=== PATIENT | male | born 1950 | race Caucasian/White ===

== ENCOUNTER 2017-09-26 14:02 | Inpatient (IN) | payer MEDICARE, BC, OTHER ==
[~2017-09-26] VITALS: Ht 175.3 cm; Wt 94.1 kg
[2017-09-26] MEDS ORDERED: VALS320T2 PO (14:19)
[2017-09-26] MEDS ORDERED: ASPI-630 PO (14:19)
[2017-09-26] MEDS ORDERED: LIPITOR80 MG PO (14:19)
[2017-09-26] MEDS ORDERED: CARV12.52 PO (14:19)
[2017-09-26] MEDS ORDERED: INSU100I13 SQ (14:19)
[2017-09-26] MEDS ORDERED: ISOS30TA4 PO (14:19)
[2017-09-26] MEDS ORDERED: INSU100V31 SQ (14:19)
[2017-09-26] MEDS ORDERED: LIRA0.6P2 SQ (14:19)
--- NOTE | 2017-09-26 14:19 | EKG ---
[facility] [address] [place] [address] Test Date: 2017-09-26 Test Time: 14:08:00 Pat Name: KATELYN PARNELL Department: Room: Gender: M Licensed Therapist: : [id number] Requested By: CHARY SALAS Order Number: [id number] Reading MD: John Santillan Measurements Intervals [place] Rate: 67 P: -36 ME: 184 QRS: -19 QRSD: 88 T: 176 QT: 416 QTc: 443 Interpretive Statements SINUS RHYTHM LEFTWARD AXIS CONSIDER LEFT VENTRICULAR HYPERTROPHY QRS(T) CONTOUR ABNORMALITY CONSISTENT WITH ANTEROSEPTAL INFARCT PROBABLY OLD T ABNORMALITY IN ANTEROLATERAL LEADS ABNORMAL ECG Electronically Signed On 10-09-2017 13:53:59 PROPERTY MANAGEMENT ACCOUNTANT by John Santillan
--- NOTE | 2017-09-26 14:35 | PHYS DOC ---
Past Medical History Past Medical History: Diabetes-Type II, GERD, High Cholesterol, Hypertension, SD Past Surgical History: Pacemaker, Other Additional Past Surgical Histo: shoulder surgery x3 Alcohol Use: None Drug Use: None Adult General Chief Complaint Chief Complaint: CHEST PAIN HPI HPI 66 YO M presenting to the ED with chest pain. He describes a central midsternal chest pain that was moderate to severe associated with nausea lightheadedness sweatiness and pallor. He also felt mildly short of breath. This happened approximately 30 minutes prior to arrival. Upon EMS arrival the patient was given aspirin and nitroglycerin which improved his symptoms significantly. He has cardiology at [facility]. He reports a history of 3 stents in the past. He denies being on clopidogrel. He denies unilateral leg swelling hemoptysis or history of blood clot. Review of systems is negative for abdominal pain. Positive for nausea and sweatiness. Negative for fevers chills. All other review of systems is negative unless otherwise noted in history of present illness. ED course: 66-year-old male presenting to the emergency department with diaphoresis and pallor associated with chest pain and pressure. Patient responded well to aspirin and nitroglycerin and was essentially chest pain-free upon arrival. Initially the patient was afebrile with a normal heart rate. EKG obtained and reviewed by myself shows sinus rhythm with a regular rate. ST segments are congruent. does not meet stemi criteria. Chest x-ray obtained which was unremarkable. Blood work obtained which shows mildly elevated troponin. Bolus heparin given. I discussed with the ASHLEIGH Curry from our cardiology team. We will admit the patient to our cardiovascular care unit for further evaluation workup and care. Review of Systems Review of Systems SEE ABOVE. Current Medications Current Medications Current Medications Medications (Trade) Dose Ordered Sig/[facility] Start Time Stop Time Status Last Admin Dose Admin Heparin Sodium (Porcine) (Heparin Sodium) 4,000 unit 1X ONCE 09/26/17 15:30 09/26/17 15:31 DC Heparin Sodium/ Dextrose 500 ml @ 0 mls/hr CONT PRN 09/26/17 15:30 Morphine Sulfate 2 mg PRN Q2HR PRN 09/26/17 15:30 09/27/17 15:29 Nitroglycerin (Nitrostat) 0.4 mg PRN Q5MIN PRN 09/26/17 15:30 09/27/17 15:29 Ondansetron HCl (Zofran) 4 mg PRN Q8HRS PRN 09/26/17 15:30 09/27/17 15:29 Sodium Chloride 1,000 ml @ 100 mls/hr Q10H 09/26/17 15:18 09/27/17 03:17 Allergies Allergies Allergies Coded Allergies Type Severity Reaction Last Updated Verified No Known Drug Allergies 09/26/17 No Physical Exam Physical Exam SEE ABOVE Constitutional: Well developed, well nourished, no acute distress, non-toxic appearance. [] HENT: Normocephalic, atraumatic, bilateral external ears normal, oropharynx moist, no oral exudates, nose normal. Eyes: PERRLA, EOMI, conjunctiva normal, no discharge. [] Neck: Normal range of motion, no tenderness, supple, no stridor. [] Cardiovascular:Heart rate regular rhythm, no murmur [] Lungs & Thorax: Bilateral breath sounds clear to auscultation [] Abdomen: Bowel sounds normal, soft, no tenderness, no masses, no pulsatile masses. [] Skin: Warm, dry, no erythema, no rash. no longer diaphoretic. Back: No tenderness, no CVA tenderness. [] Extremities: No tenderness, no cyanosis, no clubbing, ROM intact, no edema. [] Neurologic: Alert and oriented X 3, normal motor function, normal sensory function, no focal deficits noted. Psychologic: Affect normal, judgement normal, mood normal. [] Current Patient Data Vital Signs Vital Signs Date Time Temp Pulse Resp B/P (MAP) Pulse Ox O2 Delivery O2 Flow Rate FiO2 09/26/17 14:02 98.5 65 20 134/70 (91) 99 Room Air 98.5 Lab Values Laboratory Tests Test 09/26/17 14:40 White Blood Count 5.6 x10^3/uL (4.0-11.0) Red Blood Count 4.29 x10^6/uL (4.30-5.70) L Hemoglobin 12.8 g/dL (13.0-17.5) L Hematocrit 38.1 % (39.0-53.0) L Mean Corpuscular Volume 89 fL (79-100) Mean Corpuscular Hemoglobin 30 pg (25-35) Mean Corpuscular Hemoglobin Concent 34 g/dL (31-37) Red Cell Distribution Width 13.4 % (11.5-14.5) Platelet Count 157 x10^3/uL (140-400) Neutrophils (%) (Auto) 69 % (31-73) Lymphocytes (%) (Auto) 18 % (24-48) L Monocytes (%) (Auto) 6 % (0-9) Eosinophils (%) (Auto) 6 % (0-3) H Basophils (%) (Auto) 1 % (0-3) Neutrophils # (Auto) 3.8 x10^3uL (1.8-7.7) Lymphocytes # (Auto) 1.0 x10^3/uL (1.0-4.8) Monocytes # (Auto) 0.3 x10^3/uL (0.0-1.1) Eosinophils # (Auto) 0.3 x10^3/uL (0.0-0.7) Basophils # (Auto) 0.0 x10^3/uL (0.0-0.2) Prothrombin Time 13.7 SEC (11.7-14.0) Prothrombin Time INR 1.1 (0.8-1.1) Sodium Level 142 mmol/L (136-145) Potassium Level 3.7 mmol/L (3.5-5.1) Chloride Level 107 mmol/L (98-107) Carbon Dioxide Level 27 mmol/L (21-32) Anion Gap 8 (6-14) Blood Urea Nitrogen 16 mg/dL (8-26) Creatinine 1.6 mg/dL (0.7-1.3) H Estimated GFR (Cockcroft-Gault) 43.3 BUN/Creatinine Ratio 10 (6-20) Glucose Level 202 mg/dL (70-99) H Calcium Level 8.5 mg/dL (8.5-10.1) Magnesium Level 2.0 mg/dL (1.8-2.4) Total Bilirubin 0.7 mg/dL (0.2-1.0) Aspartate Amino Transferase (AST) 39 U/L (15-37) H Alanine Aminotransferase (ALT) 37 U/L (16-63) Alkaline Phosphatase 69 U/L (46-116) Troponin I Quantitative 0.062 ng/mL (0.000-0.055) Total Protein 6.8 g/dL (6.4-8.2) Albumin 2.8 g/dL (3.4-5.0) L Albumin/Globulin Ratio 0.7 (1.0-1.7) L Laboratory Tests 09/26/17 14:40 Laboratory Tests 09/26/17 14:40 EKG EKG [] Radiology/Procedures Radiology/Procedures [] Course & Med Decision Making Course & Med Decision Making Pertinent Labs and Imaging studies reviewed. (See chart for details) [] Dragon Disclaimer Dragon Disclaimer This electronic medical record was generated, in whole or in part, using a voice recognition dictation system. Departure Departure Impression: Primary Impression: NSTEMI (non-ST elevated myocardial infarction) Additional Impression: Angina at rest Disposition: ADMITTED INPATIENT Admitting Physician: Estefani Cleary Condition: STABLE Problem Qualifiers LILA SOLIS MD Sep 26, 2017 14:35
[2017-09-26 14:49] LABS: BASO % 1 % (0-3); EOS % 6 % (0-3); HEMATOCRIT 38.1 % (39.0-53.0); HEMOGLOBIN 12.8 g/dL (13.0-17.5); LYMPH % 18 % (24-48); MEAN CORPUSCULAR HEMOGLOBIN 30 pg (25-35); MEAN CORPUSCULAR HGB CONC 34 g/dL (31-37); MEAN CORPUSCULAR VOLUME 89 fL (79-100); MONO % 6 % (0-9); NEUT % 69 % (31-73); PLATELET COUNT 157 x10^3/uL (140-400); RED BLOOD COUNT 4.29 x10^6/uL (4.30-5.70); RED CELL DISTRIBUTION WIDTH 13.4 % (11.5-14.5); WHITE BLOOD COUNT 5.6 x10^3/uL (4.0-11.0)
[2017-09-26 14:59] LABS: CALCIUM 8.5 mg/dL (8.5-10.1); CREATININE 1.6 mg/dL (0.7-1.3); GFR 43.3; POTASSIUM 3.7 mmol/L (3.5-5.1)
--- NOTE | 2017-09-26 15:00 | RAD ---
EXAM: Chest one view. HISTORY: Chest pain. Hypertension, diabetes. COMPARISON: None. FINDINGS: A frontal view of the chest is obtained. A left-sided pacemaker has its leads in the right atrium and right ventricle. The inspiration is small. There are no confluent infiltrates. There is no pneumothorax or pleural effusion. The heart is not enlarged. IMPRESSION: 1. No confluent infiltrates.
[2017-09-26 15:03] LABS: INR 1.1 (0.8-1.1); PROTHROMBIN TIME PATIENT 13.7 SEC (11.7-14.0)
[2017-09-26 15:06] LABS: ALBUMIN 2.8 g/dL (3.4-5.0); ALBUMIN/GLOBULIN RATIO 0.7 (1.0-1.7); TOTAL BILIRUBIN 0.7 mg/dL (0.2-1.0); TOTAL PROTEIN 6.8 g/dL (6.4-8.2)
[2017-09-26] MEDS: IV NORMAL SALINE 1000ML BAG 1,000 ML IV SCH (15:18)
[2017-09-26] MEDS ORDERED: NITROGLYCERIN SUBLINGUAL 0.4 MG BOTTLE OF 25. SL PRN (15:30)
[2017-09-26] MEDS ORDERED: MORPHINE SULFATE 2 MG/ML DISP.SYRIN. IV PRN (15:30)
[2017-09-26] MEDS ORDERED: HEPARIN for IV BOLUS 10,000 UNIT/10 ML VIAL. IV ONE (15:30)
[2017-09-26] MEDS ORDERED: HEPARIN for IV BOLUS 10,000 UNIT/10 ML VIAL. IV PRN (15:30)
[2017-09-26] MEDS ORDERED: ONDANSETRON PF 4 MG/2 ML VIAL. IV PRN ×2 (15:30→16:15)
[2017-09-26] MEDS ORDERED: HEPARIN 25,000UTS/500ML PREMIX 500 ML IV PRN (15:30)
--- NOTE | 2017-09-26 15:33 | PDOC2 ---
CARDIAC CONSULT DATE OF CONSULT Date of Consult DATE: 09/26/17 TIME: 15:30 REASON FOR CONSULT Reason for Consult: Chest Pain REFERRING PHYSICIAN Referring Physician: Dr. Samano SOURCE Source: Chart review, Patient HISTORY OF PRESENT ILLNESS HISTORY OF PRESENT ILLNESS This is a 66 yo male, with a history of CAD s/p stent placement, SSS s/p PPM placement, DM, HTN, HLP, who presented with complaints of chest pain. Patient reports he was eating lunch when he had a sudden onset of central chest pain that he described initially as burning in nature. Within minutes, was associated with SOA, diaphoresis, nausea with vomiting, and dizziness. recalls pale color to his face. Denies any palpitations. No recent fatigue or GARDINER. EMS was called. No exacerbating factors. Improved with nitro en route. Took ASA prior to arrival. Pain presently 1/10 pressure in his central chest. Follows with Dr. Gomez of Cardiology. Records reviewed: - Cath with BMS to RCA in March of 2008 - ST elevation DE in February of 2013 that was treated with thrombectomy and BMS to his Dx branch and angioplasty to the LAD - SSS s/p PPM placement 04/2016. Cardiac cath at that time revealed : - Elevated LV filling pressures - Patent stnet in the proximal LAD and in the distal RCA - Moderate in-stent restenosis within the LAD artery with no evidence of flow limitation. Normal IFR of 0.92 - Echo 04/21 Left ventricular systolic function is at the lower limits of normal Mild LVH Abnormal LV diastolic filling Trace MR The apical anterior wall segment is hypokinetic - Lexiscan Nuclear Stress Test 07/2017 Relatively large, fixed, anteroapical defect. No evidence of reversibility and no significant inducible ischemia. Mild LV systolic dysfunction with hypokinesis of the apical wall. EF 49% No stress induced chest pain, LV dilatation, or EKG changes. No significant change compared to study 06/2014. PAST MEDICAL HISTORY Cardiovascular: CAD (s/p PCI/stent placement ), CHF, HTN, DE, Hyperlipidemia Pulmonary: Other (ROSA not compliant with CPAP) GI: GERD Heme/Onc: No pertinent hx Hepatobiliary: No pertinent hx Psych: No pertinent hx Musculoskeletal: Osteoarthritis Rheumatologic: No pertinent hx Infectious disease: No pertinent hx ENT: No pertinent hx Renal/: Chronic renal insuff Endocrine: Diabetes PAST SURGICAL HISTORY Past Surgical History: Pacemaker, Other (shoulder surgery) FAMILY HISTORY Family History: Alzheimer's Disease, Stroke SOCIAL HISTORY Smoke: No ALCOHOL: none Drugs: None Lives: with Family ALLERGIES ALLERGIES: Coded Allergies: No Known Drug Allergies (Unverified , 09/26/17) ROS Review of System 14 point ROS conducted with pertinent positives noted with HPI. PHYSICAL EXAM General: Alert, Oriented X3, Cooperative, No acute distress HEENT: Atraumatic Lungs: Clear to auscultation, Normal air movement Heart: Regular rate, Normal S1, Normal S2, No murmurs Abdomen: Soft, No tenderness, Other Extremities: No edema, Normal pulses Skin: No breakdown, No significant lesion Neuro: Normal speech, Sensation intact Psych/Mental Status: Mental status NL, Mood NL MUSCULOSKELETAL: Osteoarthritic changes both hands VITALS VITALS Vital Signs Date Time Temp Pulse Resp B/P (MAP) Pulse Ox O2 Delivery O2 Flow Rate FiO2 09/26/17 14:02 98.5 65 20 134/70 (91) 99 Room Air 98.5 LABS Lab: Laboratory Tests Test 09/26/17 14:40 White Blood Count 5.6 x10^3/uL (4.0-11.0) Red Blood Count 4.29 x10^6/uL (4.30-5.70) Hemoglobin 12.8 g/dL (13.0-17.5) Hematocrit 38.1 % (39.0-53.0) Mean Corpuscular Volume 89 fL (79-100) Mean Corpuscular Hemoglobin 30 pg (25-35) Mean Corpuscular Hemoglobin Concent 34 g/dL (31-37) Red Cell Distribution Width 13.4 % (11.5-14.5) Platelet Count 157 x10^3/uL (140-400) Neutrophils (%) (Auto) 69 % (31-73) Lymphocytes (%) (Auto) 18 % (24-48) Monocytes (%) (Auto) 6 % (0-9) Eosinophils (%) (Auto) 6 % (0-3) Basophils (%) (Auto) 1 % (0-3) Neutrophils # (Auto) 3.8 x10^3uL (1.8-7.7) Lymphocytes # (Auto) 1.0 x10^3/uL (1.0-4.8) Monocytes # (Auto) 0.3 x10^3/uL (0.0-1.1) Eosinophils # (Auto) 0.3 x10^3/uL (0.0-0.7) Basophils # (Auto) 0.0 x10^3/uL (0.0-0.2) Prothrombin Time 13.7 SEC (11.7-14.0) Prothromb Time International Ratio 1.1 (0.8-1.1) Sodium Level 142 mmol/L (136-145) Potassium Level 3.7 mmol/L (3.5-5.1) Chloride Level 107 mmol/L (98-107) Carbon Dioxide Level 27 mmol/L (21-32) Anion Gap 8 (6-14) Blood Urea Nitrogen 16 mg/dL (8-26) Creatinine 1.6 mg/dL (0.7-1.3) Estimated GFR (Cockcroft-Gault) 43.3 BUN/Creatinine Ratio 10 (6-20) Glucose Level 202 mg/dL (70-99) Calcium Level 8.5 mg/dL (8.5-10.1) Magnesium Level 2.0 mg/dL (1.8-2.4) Total Bilirubin 0.7 mg/dL (0.2-1.0) Aspartate Amino Transf (AST/SGOT) 39 U/L (15-37) Alanine Aminotransferase (ALT/SGPT) 37 U/L (16-63) Alkaline Phosphatase 69 U/L (46-116) Troponin I Quantitative 0.062 ng/mL (0.000-0.055) Total Protein 6.8 g/dL (6.4-8.2) Albumin 2.8 g/dL (3.4-5.0) Albumin/Globulin Ratio 0.7 (1.0-1.7) ECHOCARDIOGRAM ECHOCARDIOGRAM - Echo 04/2016 Left ventricular systolic function is at the lower limits of normal Mild LVH Abnormal LV diastolic filling Trace MR The apical anterior wall segment is hypokinetic STRESS TEST STRESS TEST - Lexiscan Nuclear Stress Test 07/2017 Relatively large, fixed, anteroapical defect. No evidence of reversibility and no significant inducible ischemia. Mild LV systolic dysfunction with hypokinesis of the apical wall. EF 49% No stress induced chest pain, LV dilatation, or EKG changes. No significant change compared to study 06/2014. HEART CATH HEART CATH Cardiac cath 04/2016 - Elevated LV filling pressures - Patent stnet in the proximal LAD and in the distal RCA - Moderate in-stent restenosis within the LAD artery with no evidence of flow limitation. Normal IFR of 0.92 ASSESSMENT/PLAN ASSESSMENT/PLAN 1. Chest pain; with typical and atypical features 2. Mild troponin elevation 3. CAD s/p PCI/stent placement as noted above in HPI 4. Hypertension 5. Hyperlipidemia 6. Chronic combined systolic/diastolic HF; compensated 7. CKD 3 8. Diabetes; uncontrolled. Recent HgA1C 10 9. SSS s/p PPM Recommendations Trend troponin Check lipids Obtain echo to assess LV function Resume secondary prevention measures Continue heparin gtt NPO p MN. Given history/significant risk factors and presentations, recommend cardiac cath with possible angioplasty. R/b/a discussed with patient and is agreeable. D/w primary bench press operator. Problems: KRISTI MUÑOZ APRN Sep 26, 2017 15:33
[2017-09-26] MEDS ORDERED: ACETAMINOPHEN 500 MG TABLET PO PRN (16:15)
--- NOTE | 2017-09-26 16:18 | PDOC1 ---
History and Physical Date of Admission Date of Admission DATE: 09/26/17 TIME: 16:12 Identification/Chief Complaint Chief Complaint cp Problems: Source Source: Caregiver, Chart review, Patient History of Present Illness History of Present Illness Very pleasant 66 y.o lola, usually follows at [facility], 3-4 indwelling stents, last one was yrs back, claims complaince to ASA and other meds, non smoker, non drinker but DM with hgba1c 10 in Jun 2017 just started seeing endoc in [facility], midsternal CP today at rest associated with lightheadedness, pallor, diaphoresis, emesis, LAsted an hr, got better with NTG SL and zofran IV. EKG no stemi, trop 0.06 first set, planned for LHC possibly tmr or today if schedule allows? REst of labs and VS ok, feeling much better now, at bedside, On lantus 45 qhs and novolog 10, 10, 12 no mention of neuropathy, also recently started on victoza Creat 1,6, as far as he can remember that is his baseline, around. Past Medical History Cardiovascular: HTN, [place], Hyperlipidemia GI: GERD Endocrine: Diabetes Past Surgical History Past Surgical History: Pacemaker, Other (shoulder surgery) Family History Family History: Hypertension Social History Smoke: No ALCOHOL: none Drugs: None Current Problem List Problem List Problems Medical Problems: (1) Angina at rest Status: Acute (2) NSTEMI (non-ST elevated myocardial infarction) Status: Acute Problems: Current Medications Current Medications Current Medications Heparin Sodium/ Dextrose 500 ml @ 0 mls/hr CONT PRN IV SEE I/O RECORD Last administered on 09/26/17 15:52; Start 09/26/17 at 15:30 Heparin Sodium (Porcine) (Heparin Sodium) 2,300 unit PRN Q6HRS PRN IV FOR UFH LEVEL LESS THAN 0.2; Start 09/26/17 at 15:30 Heparin Sodium (Porcine) (Heparin Sodium) 4,000 unit 1X ONCE IV Last administered on 09/26/17 15:50; Start 09/26/17 at 15:30; Stop 09/26/17 at 15 :31; Status DC Ondansetron HCl (Zofran) 4 mg PRN Q8HRS PRN IV NAUSEA/VOMITING; Start at 15:30; Stop 09/27/17 at 15:29 Morphine Sulfate 2 mg PRN Q2HR PRN IV PAIN; Start 09/26/17 at 15:30; Stop at 15:29 Sodium Chloride 1,000 ml @ 100 mls/hr Q10H IV ; Start 09/26/17 at 15:18; Stop 09/27/17 at 03:17 Nitroglycerin (Nitrostat) 0.4 mg PRN Q5MIN PRN SL CHEST PAIN; Start 09/26/17 at 15:30; Stop 09/27/17 at 15:29 Active Scripts Active Reported Victoza 3-Paulino (Liraglutide) 0.6 Mg/0.1 Ml Pen.injctr 1.8 Mg SQ DAILY Lantus Solostar (Insulin Glargine,Hum.rec.anlog) 100 Unit/1 Ml Insuln.pen 45 Unit SQ QHS Novolog (Insulin Aspart) 100 Unit/1 Ml Vial 10 Unit SQ TIDAC Aspirin 81 Mg Tab.chew 1 Tab PO DAILY Carvedilol 12.5 Mg Tablet 1 Tab PO BID Diovan (Valsartan) 320 Mg Tablet 320 Mg PO DAILY Isosorbide Mononitrate Er (Isosorbide Mononitrate) 30 Mg Tab.er.24h 1 Tab PO DAILY Lipitor (Atorvastatin Calcium) 80 Mg Tablet 1 Tab PO DAILY Allergies Allergies: Coded Allergies: No Known Drug Allergies (Unverified , 09/26/17) ROS General: No: Chills, Night Sweats, Fatigue, Malaise, Appetite, Other PSYCHOLOGICAL ROS: No: Anxiety, Behavioral Disorder, Concentration difficultie , Decreased libido, Depression, Disorientation, Hallucinations, Hostility, Irritablity, Memory difficulties, Mood Swings, Obsessive thoughts, Physical abuse, Sexual abuse, Sleep disturbances, Suicidal ideation, Other Eyes: No Blurry vision, No Decreased vision, No Double vision, No Dry eyes, No Excessive tearing, No Eye Pain, No Itchy Eyes, No Loss of vision, No Photophobia , No Scotomata, No Uses contacts, No Uses glasses, No Other HEENT: No: Heacaches, Visual Changes, Hearing change, Nasal congestion, Nasal discharge, Oral lesions, Sinus pain, Sore Throat, Epistaxis, Sneezing, Snoring, Tinnitus, Vertigo, Vocal changes, Other ALLERGY AND IMMUNOLOGY: No: Hives, Insect Bite Sensitivity, Itchy/Watery Eyes, Nasal Congestion, Post Nasal Drip, Seasonal Allergies, Other Hematological and Lymphatic: No: Bleeding Problems, Blood Clots, Blood Transfusions, Brusing, Night Sweats, Pallor, Swollen Lymph Nodes, Other ENDOCRINE: No: Breast Changes, Galactorrhea, Hair Pattern Changes, Hot Flashes , Malaise/lethargy, Mood Swings, Palpitations, Polydipsia/polyuria, Skin Changes , Temperature Intolerance, Unexpected Weight Changes, Other Breast: No New/Changing Breast Lumps, No Nipple changes, No Nipple discharge, No Other Respiratory: YES: Shortness of breath Cardiovascular: yes Chest Pain Gastrointestinal: Yes Nausea, Yes Vomiting, No Abdominal Pain, No Diarrhea, No Constipation, No Melena, No Hematochezia, No Other Genitourinary: No Dysuria, No Frequency, No Incontinence, No Hematuria, No Retention, No Discharge, No Urgency, No Pain, No Flank Pain, No Other, No , No , No , No , No , No , No Musculoskeletal: No Gait Disturbance, No Joint Pain, No Joint Stiffness, No Joint Swelling, No Muscle Pain, No Muscular Weakness, No Pain In:, No Swelling In:, No Other Neurological: No Behavorial Changes, No Bowel/Bladder ControlChng, No Confusion , No Dizziness, No Gait Disturbance, No Headaches, No Impaired Coord/balance, No Memory Loss, No Numbness/Tingling, No Seizures, No Speech Problems, No Tremors, No Visual Changes, No Weakness, No Other Skin: No Dry Skin, No Eczema, No Hair Changes, No Lumps, No Mole Changes, No Mottling, No Nail Changes, No Pruritus, No Rash, No Skin Lesion Changes, No Other, No Acne Physical Exam General: Alert, Oriented X3, Cooperative, No acute distress HEENT: Atraumatic, PERRLA, EOMI Lungs: Clear to auscultation, Normal air movement Heart: S1S2, RRR, no thrills, no rubs, no gallops Cardiovascular: S1, S2 Breasts: Normal, Rt breast nml w/o mass, Lt breast nml w/o mass, Nipples normal Abdomen: Normal bowel sounds, Soft, No tenderness, No hepatosplenomegaly, No masses Male Genitals Exam: normal genitalia, normal prostate PELVIC: Nml ext genitalia Extremities: No clubbing, No cyanosis, No edema, Normal pulses, No tenderness/ swelling Skin: No rashes, No breakdown, No significant lesion Neuro: Normal gait, Normal speech, Strength at 5/5 X4 ext, Normal tone, Sensation intact, Cranial nerves 3-12 NL, Reflexes 2+ Psych/Mental Status: Mental status NL, Mood NL Vitals Vitals Vital Signs Date Time Temp Pulse Resp B/P (MAP) Pulse Ox O2 Delivery O2 Flow Rate FiO2 09/26/17 15:56 85 18 141/86 (104) 94 Room Air 09/26/17 14:02 98.5 98.5 Labs Labs Laboratory Tests Test 09/26/17 14:40 White Blood Count 5.6 x10^3/uL (4.0-11.0) Red Blood Count 4.29 x10^6/uL (4.30-5.70) Hemoglobin 12.8 g/dL (13.0-17.5) Hematocrit 38.1 % (39.0-53.0) Mean Corpuscular Volume 89 fL (79-100) Mean Corpuscular Hemoglobin 30 pg (25-35) Mean Corpuscular Hemoglobin Concent 34 g/dL (31-37) Red Cell Distribution Width 13.4 % (11.5-14.5) Platelet Count 157 x10^3/uL (140-400) Neutrophils (%) (Auto) 69 % (31-73) Lymphocytes (%) (Auto) 18 % (24-48) Monocytes (%) (Auto) 6 % (0-9) Eosinophils (%) (Auto) 6 % (0-3) Basophils (%) (Auto) 1 % (0-3) Neutrophils # (Auto) 3.8 x10^3uL (1.8-7.7) Lymphocytes # (Auto) 1.0 x10^3/uL (1.0-4.8) Monocytes # (Auto) 0.3 x10^3/uL (0.0-1.1) Eosinophils # (Auto) 0.3 x10^3/uL (0.0-0.7) Basophils # (Auto) 0.0 x10^3/uL (0.0-0.2) Prothrombin Time 13.7 SEC (11.7-14.0) Prothromb Time International Ratio 1.1 (0.8-1.1) Sodium Level 142 mmol/L (136-145) Potassium Level 3.7 mmol/L (3.5-5.1) Chloride Level 107 mmol/L (98-107) Carbon Dioxide Level 27 mmol/L (21-32) Anion Gap 8 (6-14) Blood Urea Nitrogen 16 mg/dL (8-26) Creatinine 1.6 mg/dL (0.7-1.3) Estimated GFR (Cockcroft-Gault) 43.3 BUN/Creatinine Ratio 10 (6-20) Glucose Level 202 mg/dL (70-99) Calcium Level 8.5 mg/dL (8.5-10.1) Magnesium Level 2.0 mg/dL (1.8-2.4) Total Bilirubin 0.7 mg/dL (0.2-1.0) Aspartate Amino Transf (AST/SGOT) 39 U/L (15-37) Alanine Aminotransferase (ALT/SGPT) 37 U/L (16-63) Alkaline Phosphatase 69 U/L (46-116) Troponin I Quantitative 0.062 ng/mL (0.000-0.055) Total Protein 6.8 g/dL (6.4-8.2) Albumin 2.8 g/dL (3.4-5.0) Albumin/Globulin Ratio 0.7 (1.0-1.7) Laboratory Tests Test 09/26/17 14:40 White Blood Count 5.6 x10^3/uL (4.0-11.0) Red Blood Count 4.29 x10^6/uL (4.30-5.70) Hemoglobin 12.8 g/dL (13.0-17.5) Hematocrit 38.1 % (39.0-53.0) Mean Corpuscular Volume 89 fL (79-100) Mean Corpuscular Hemoglobin 30 pg (25-35) Mean Corpuscular Hemoglobin Concent 34 g/dL (31-37) Red Cell Distribution Width 13.4 % (11.5-14.5) Platelet Count 157 x10^3/uL (140-400) Neutrophils (%) (Auto) 69 % (31-73) Lymphocytes (%) (Auto) 18 % (24-48) Monocytes (%) (Auto) 6 % (0-9) Eosinophils (%) (Auto) 6 % (0-3) Basophils (%) (Auto) 1 % (0-3) Neutrophils # (Auto) 3.8 x10^3uL (1.8-7.7) Lymphocytes # (Auto) 1.0 x10^3/uL (1.0-4.8) Monocytes # (Auto) 0.3 x10^3/uL (0.0-1.1) Eosinophils # (Auto) 0.3 x10^3/uL (0.0-0.7) Basophils # (Auto) 0.0 x10^3/uL (0.0-0.2) Prothrombin Time 13.7 SEC (11.7-14.0) Prothromb Time International Ratio 1.1 (0.8-1.1) Sodium Level 142 mmol/L (136-145) Potassium Level 3.7 mmol/L (3.5-5.1) Chloride Level 107 mmol/L (98-107) Carbon Dioxide Level 27 mmol/L (21-32) Anion Gap 8 (6-14) Blood Urea Nitrogen 16 mg/dL (8-26) Creatinine 1.6 mg/dL (0.7-1.3) Estimated GFR (Cockcroft-Gault) 43.3 BUN/Creatinine Ratio 10 (6-20) Glucose Level 202 mg/dL (70-99) Calcium Level 8.5 mg/dL (8.5-10.1) Magnesium Level 2.0 mg/dL (1.8-2.4) Total Bilirubin 0.7 mg/dL (0.2-1.0) Aspartate Amino Transf (AST/SGOT) 39 U/L (15-37) Alanine Aminotransferase (ALT/SGPT) 37 U/L (16-63) Alkaline Phosphatase 69 U/L (46-116) Troponin I Quantitative 0.062 ng/mL (0.000-0.055) Total Protein 6.8 g/dL (6.4-8.2) Albumin 2.8 g/dL (3.4-5.0) Albumin/Globulin Ratio 0.7 (1.0-1.7) VTE Prophylaxis Ordered VTE Prophylaxis Devices: Yes VTE Pharmacological Prophylaxi: Yes Assessment/Plan Assessment/Plan 1. Unstable angina r.o ACS possible nSTEMI 2. Obesity 3. Dyslipidemia\ 4. DM 2 on insulin 5. HTN 6. PRECIOUS on possible CKD Plan: Admit 2 MN NPO post MN in case LHC SSI check hgba1c IVF hydrate, mucomyst pre and post cath PT.OT Stool softener O2 DAO Resume home meds Check lipids Records from [facility] Seen at ER 19 BERNIE PRESLEY MD Sep 26, 2017 16:18
[2017-09-26] MEDS: INSULIN ASPART 300 UNITS/3 ML INSULN.PEN SQ SCH (16:30)
[2017-09-26 18:17] VITALS: BP 163/84
[2017-09-26] MEDS ORDERED: DEXTROSE 50% 25 GM / 50ML DISP.SYRIN. IV PRN (19:30)
[2017-09-26 19:55] VITALS: BP 154/79
[2017-09-26] MEDS ORDERED: IV NORMAL SALINE 1000ML BAG 1,000 ML IV ONE (20:00)
[2017-09-26] MEDS: CARVEDILOL 12.5 MG TABLET. PO SCH (20:20)
[2017-09-26] MEDS ORDERED: ATORVASTATIN CALCIUM 40 MG TABLET. PO SCH (21:00)
[2017-09-26] MEDS ORDERED: INSULIN DETEMIR 300 UNITS/3 ML INSULN.PEN. SQ SCH (21:00)
[2017-09-26] MEDS ORDERED: ACETYLCYSTEINE 20% ORAL SOLN 600 MG/3 ML SYRINGE. PO SCH (21:00)
[2017-09-26] MEDS: ACETYLCYSTEINE 20% ORAL SOLN 600 MG/3 ML SYRINGE. PO SCH (21:43)
[2017-09-26 23:12] VITALS: BP 109/55
[2017-09-27] VITALS (13 sets, daily range): BP systolic 97–128; BP diastolic 52–72
[2017-09-27] MEDS: IV NORMAL SALINE 1000ML BAG 1,000 ML IV SCH (01:18)
[2017-09-27 05:22] LABS: BASO % 0 % (0-3); EOS % 3 % (0-3); HEMATOCRIT 35.2 % (39.0-53.0); HEMOGLOBIN 11.8 g/dL (13.0-17.5); LYMPH # 1.8 x10^3/uL (1.0-4.8); LYMPH % 20 % (24-48); MEAN CORPUSCULAR HEMOGLOBIN 30 pg (25-35); MEAN CORPUSCULAR HGB CONC 33 g/dL (31-37); MEAN CORPUSCULAR VOLUME 90 fL (79-100); MONO % 8 % (0-9); NEUT % 70 % (31-73); PLATELET COUNT 137 x10^3/uL (140-400); RED BLOOD COUNT 3.93 x10^6/uL (4.30-5.70); RED CELL DISTRIBUTION WIDTH 13.4 % (11.5-14.5); WHITE BLOOD COUNT 8.9 x10^3/uL (4.0-11.0)
[2017-09-27] MEDS: ACETYLCYSTEINE 20% ORAL SOLN 600 MG/3 ML SYRINGE. PO SCH (05:56)
[2017-09-27 06:04] LABS: CALCIUM 8.4 mg/dL (8.5-10.1); CHOLESTEROL/HDL RATIO 2.2; CREATININE 1.6 mg/dL (0.7-1.3); GFR 43.3
[2017-09-27] MEDS ORDERED: LIDOCAINE 2% 20 ML VIAL. ONE (07:29)
[2017-09-27] MEDS ORDERED: IODIXANOL 320 MG/ML 100 ML VIAL. ONE (07:29)
[2017-09-27] MEDS: CARVEDILOL 12.5 MG TABLET. PO SCH (07:44)
[2017-09-27] MEDS: INSULIN ASPART 300 UNITS/3 ML INSULN.PEN SQ SCH ×2 (07:52→12:18)
[2017-09-27] MEDS ORDERED: fentaNYL PF VIAL 100 MCG/2 ML VIAL ONE (08:05)
[2017-09-27] MEDS ORDERED: MIDAZOLAM HCL/PF 2 MG/2 ML VIAL. ONE (08:05)
--- NOTE | 2017-09-27 08:11 | PDOC ---
MODERATE SEDATION ASSESSMENT RISKS/ALTERNATIVES Risks/Alternatives Risks and alternatives of this type of sedation and procedure discussed with: RISK/ALTERNATIVES: Patient H & P ON CHART H & P H & P on chart and reviewed for co-morbid conditions and appropriate labs. H&P ON CHART: Yes STATUS PREG STATUS ASSESSED: N/A MEDS/ALLERGIES REVIEWED Meds/Allergies Reviewed Medications and Allergies including time and route of recently administered narcotics and sedatives. MEDS/ALLERGIES REVIEWED: Yes ASA RATING ASA RATING: II AIRWAY ASSESSMENT Airway Assessment Airway patency, oral function limitations, presence of caps, crowns, dentures, partials, and ability to extend neck assessed. AIRWAY ASSESSMENT: Yes MALLAMPATI SCORE MALLAMPATI SCORE: II PRE-SEDATION ASSESSMENT PRE-SEDATION ASSESSMENT: Yes ORVILLE MCCORMICK MD Sep 27, 2017 08:11
[2017-09-27] MEDS ORDERED: ISOSORBIDE MONONITRATE ER 30 MG TAB.ER.24H PO SCH (09:00)
[2017-09-27] MEDS ORDERED: LOSARTAN POTASSIUM 50 MG TABLET. PO SCH (09:00)
[2017-09-27] MEDS ORDERED: LIDOCAINE 2% 20 ML VIAL. IJ ONE (09:00)
[2017-09-27] MEDS ORDERED: ASPIRIN CHEWABLE 81 MG TABLET. PO SCH (09:00)
[2017-09-27] MEDS ORDERED: fentaNYL PF VIAL 100 MCG/2 ML VIAL IV ONE (09:00)
[2017-09-27] MEDS ORDERED: MIDAZOLAM HCL/PF 2 MG/2 ML VIAL. IV ONE (09:00)
[2017-09-27] MEDS ORDERED: NON FORMULARY ITEM (Liraglutide (Victoza 3-Pak) 1.8 MG) SQ SCH (09:00)
[2017-09-27] MEDS ORDERED: IODIXANOL 320 MG/ML 100 ML VIAL. IART ONE (09:00)
[2017-09-27] MEDS ORDERED: IV NORMAL SALINE 1000ML BAG 1,000 ML IV SCH (09:30)
[2017-09-27] MEDS ORDERED: NITROGLYCERIN SUBLINGUAL 0.4 MG BOTTLE OF 25. SL PRN (09:30)
[2017-09-27] MEDS ORDERED: 0.9 % SODIUM CHLORIDE 10 ML DISP.SYRIN. IV PRN (09:30)
--- NOTE | 2017-09-27 09:43 | PDOC4 ---
OPERATIVE NOTE: Brief cath note. Patent stents in the LAD and distal RCA. Mid RCA lesion of 50-60% with a nonsignificant IFR of 0.91. Recent nuclear stress test with no reversible ischemia. No hemodynamically significant lesions. No intervention. Continue medical treatment. Home later today. Follow up in 2 to [address] Gomez. Discussed with the patient. Full report to follow. ORVILLE MCCORMICK MD Sep 27, 2017 09:43
--- NOTE | 2017-09-27 12:14 | CARD ---
APPROVED REPORT Procedures Left heart catheterization. Selective coronary angiogram. IFR measurement of the right coronary artery. The patient is a 66-year-old male with history of previous stents to the LAD and right coronary arter y with a previous anterior wall myocardial infarction. Nuclear stress test in the last 60 days showed a fixed anterior wall defect and no reversible ischemia. Patient however had recurrent chest pain an d was admitted through the emergency room. He had a minimally elevated troponin of less than 1. [facility] in the setting of recurrent pain with a history of coronary disease cardiac catheterization was re commended. Risks and benefits were discussed. The patient agreed to proceed. After informed consent was obtained the patient was brought to the heart catheterization lab. The are a of the right femoral artery was prepared in the usual manner with Betadine, sterile draping and loc al anesthetic. An 18-gauge needle was used to enter the right femoral artery, a wire placed and a 6 F rench sheath placed over the wire. A 6 Taiwanese JL4 catheter was then used to engage the left coronary system and sequential injections in various views were obtained. A [address] [place] was used to engage the right coronary artery and sequential injections in various views were obta ined. A pigtail catheter was advanced to the ascending aorta and then the left ventricle. No left ai triculogram was performed. Pressures were measured. Pullback pressures were measured. At this time th e patient had a borderline lesion in the mid right coronary artery. We proceeded to perform a IFR waldo surement. ACT was checked and was appropriate. A 6 Taiwanese JR4 guide was used to engage the right danny nary artery system. A pressure guidewire was then advanced as per protocol. IFR measurement was 0.91 . The wire and guide were removed. Injection the sheath showed normal placement. The sheath was remov ed and sealed with an Angio-Seal product. The patient was then moved to the holding area in stable co ndition. Findings. Hemodynamics. LV 132/18, aortic root 130/86. Coronaries. Left main. The left main had no lesions. Left anterior descending. The LAD was a moderate to moderately small vessel. It had a long proximal t o mid stent with mild restenosis of 25-30%. No first diagonal branch was identified. Left circumflex. The left circumflex is a moderate size vessel. It had a mid 20% lesion. It had a sma ll obtuse marginal branch. Right coronary artery. The right coronary was a large dominant vessel. It had a patent distal stent. It's proximal to mid portion had diffuse mild disease. In the mid to distal region there is a lesion of 50-60%. As noted above the IFR measurements showed a hemodynamically insignificant lesion with a measurement of 0.91. <Conclusion> Patent stents in the LAD and distal right coronary artery. Mild disease in the left circumflex vessel. Mid right coronary lesion of 50-60% with a nonsignificant IVR of 0.91.
--- NOTE | 2017-09-27 14:41 | PDOC ---
PROGRESS NOTES Chief Complaint Chief Complaint Chest Pain Diabetes-Type II GERD High Cholesterol Hypertension LA Pacemaker History of Present Illness History of Present Illness Pt was sleeping with NAD. Vitals Vitals Vital Signs Date Time Temp Pulse Resp B/P (MAP) Pulse Ox O2 Delivery O2 Flow Rate FiO2 09/27/17 12:45 97.7 67 20 97/52 (67) 93 Room Air 97.7 09/27/17 09:13 2.0 Physical Exam General: Alert, No acute distress Heart: Regular rate, Normal S1, Normal S2, No murmurs Lungs: Clear Labs LABS Laboratory Tests Test 09/26/17 14:40 09/26/17 21:42 09/26/17 21:50 09/27/17 04:00 White Blood Count 5.6 x10^3/uL (4.0-11.0) 8.9 x10^3/uL (4.0-11.0) Red Blood Count 4.29 x10^6/uL (4.30-5.70) 3.93 x10^6/uL (4.30-5.70) Hemoglobin 12.8 g/dL (13.0-17.5) 11.8 g/dL (13.0-17.5) Hematocrit 38.1 % (39.0-53.0) 35.2 % (39.0-53.0) Mean Corpuscular Volume 89 fL (79-100) 90 fL (79-100) Mean Corpuscular Hemoglobin 30 pg (25-35) 30 pg (25-35) Mean Corpuscular Hemoglobin Concent 34 g/dL (31-37) 33 g/dL (31-37) Red Cell Distribution Width 13.4 % (11.5-14.5) 13.4 % (11.5-14.5) Platelet Count 157 x10^3/uL (140-400) 137 x10^3/uL (140-400) Neutrophils (%) (Auto) 69 % (31-73) 70 % (31-73) Lymphocytes (%) (Auto) 18 % (24-48) 20 % (24-48) Monocytes (%) (Auto) 6 % (0-9) 8 % (0-9) Eosinophils (%) (Auto) 6 % (0-3) 3 % (0-3) Basophils (%) (Auto) 1 % (0-3) 0 % (0-3) Neutrophils # (Auto) 3.8 x10^3uL (1.8-7.7) 6.2 x10^3uL (1.8-7.7) Lymphocytes # (Auto) 1.0 x10^3/uL (1.0-4.8) 1.8 x10^3/uL (1.0-4.8) Monocytes # (Auto) 0.3 x10^3/uL (0.0-1.1) 0.7 x10^3/uL (0.0-1.1) Eosinophils # (Auto) 0.3 x10^3/uL (0.0-0.7) 0.2 x10^3/uL (0.0-0.7) Basophils # (Auto) 0.0 x10^3/uL (0.0-0.2) 0.0 x10^3/uL (0.0-0.2) Prothrombin Time 13.7 SEC (11.7-14.0) Prothromb Time International Ratio 1.1 (0.8-1.1) Sodium Level 142 mmol/L (136-145) 143 mmol/L (136-145) Potassium Level 3.7 mmol/L (3.5-5.1) 4.0 mmol/L (3.5-5.1) Chloride Level 107 mmol/L (98-107) 107 mmol/L (98-107) Carbon Dioxide Level 27 mmol/L (21-32) 30 mmol/L (21-32) Anion Gap 8 (6-14) 6 (6-14) Blood Urea Nitrogen 16 mg/dL (8-26) 17 mg/dL (8-26) Creatinine 1.6 mg/dL (0.7-1.3) 1.6 mg/dL (0.7-1.3) Estimated GFR (Cockcroft-Gault) 43.3 43.3 BUN/Creatinine Ratio 10 (6-20) Glucose Level 202 mg/dL (70-99) 103 mg/dL (70-99) Hemoglobin A1c 7.1 % (4.8-5.6) Calcium Level 8.5 mg/dL (8.5-10.1) 8.4 mg/dL (8.5-10.1) Magnesium Level 2.0 mg/dL (1.8-2.4) Total Bilirubin 0.7 mg/dL (0.2-1.0) Aspartate Amino Transf (AST/SGOT) 39 U/L (15-37) Alanine Aminotransferase (ALT/SGPT) 37 U/L (16-63) Alkaline Phosphatase 69 U/L (46-116) Troponin I Quantitative 0.062 ng/mL (0.000-0.055) 0.060 ng/mL (0.000-0.055) 0.051 ng/mL (0.000-0.055) Total Protein 6.8 g/dL (6.4-8.2) Albumin 2.8 g/dL (3.4-5.0) Albumin/Globulin Ratio 0.7 (1.0-1.7) Glucose (Fingerstick) 124 mg/dL (70-99) Heparin Anti-Xa Act, Unfractionated 0.80 IU/mL (0.30-0.70) 0.47 IU/mL (0.30-0.70) Triglycerides Level 19 mg/dL (0-150) Cholesterol Level 73 mg/dL (0-200) LDL Cholesterol, Calculated 36 mg/dL (0-100) VLDL Cholesterol, Calculated 4 mg/dL (0-40) Non-HDL Cholesterol Calculated 40 mg/dL (0-129) HDL Cholesterol 33 mg/dL (40-60) Cholesterol/HDL Ratio 2.2 Test 09/27/17 07:11 09/27/17 08:49 09/27/17 10:50 09/27/17 11:11 Glucose (Fingerstick) 107 mg/dL (70-99) 177 mg/dL (70-99) Activated Clotting Time 156 sec (92-181) Heparin Anti-Xa Act, Unfractionated < 0.10 IU/mL (0.30-0.70) Review of Systems Review of Systems Unobtainable. Assessment and Plan Assessmemt and Plan Problems Medical Problems: (1) Angina at rest Status: Acute (2) NSTEMI (non-ST elevated myocardial infarction) Status: Acute ASSESSMENT: Chest Pain Diabetes-Type II GERD High Cholesterol Hypertension LA Pacemaker PLAN: Continue Cardiac monitoring Awaiting results from cardiac stress test Monitor labs and cardiac enzymes Consult PT/OT Discharge if ok with cardiology Follow up with PCP after discharge Problems: Comment Review of Relevant I have reviewed the following items lillian (where applicable) has been applied. Labs Laboratory Tests Test 09/26/17 14:40 09/26/17 21:42 09/26/17 21:50 09/27/17 04:00 White Blood Count 5.6 x10^3/uL (4.0-11.0) 8.9 x10^3/uL (4.0-11.0) Red Blood Count 4.29 x10^6/uL (4.30-5.70) 3.93 x10^6/uL (4.30-5.70) Hemoglobin 12.8 g/dL (13.0-17.5) 11.8 g/dL (13.0-17.5) Hematocrit 38.1 % (39.0-53.0) 35.2 % (39.0-53.0) Mean Corpuscular Volume 89 fL (79-100) 90 fL (79-100) Mean Corpuscular Hemoglobin 30 pg (25-35) 30 pg (25-35) Mean Corpuscular Hemoglobin Concent 34 g/dL (31-37) 33 g/dL (31-37) Red Cell Distribution Width 13.4 % (11.5-14.5) 13.4 % (11.5-14.5) Platelet Count 157 x10^3/uL (140-400) 137 x10^3/uL (140-400) Neutrophils (%) (Auto) 69 % (31-73) 70 % (31-73) Lymphocytes (%) (Auto) 18 % (24-48) 20 % (24-48) Monocytes (%) (Auto) 6 % (0-9) 8 % (0-9) Eosinophils (%) (Auto) 6 % (0-3) 3 % (0-3) Basophils (%) (Auto) 1 % (0-3) 0 % (0-3) Neutrophils # (Auto) 3.8 x10^3uL (1.8-7.7) 6.2 x10^3uL (1.8-7.7) Lymphocytes # (Auto) 1.0 x10^3/uL (1.0-4.8) 1.8 x10^3/uL (1.0-4.8) Monocytes # (Auto) 0.3 x10^3/uL (0.0-1.1) 0.7 x10^3/uL (0.0-1.1) Eosinophils # (Auto) 0.3 x10^3/uL (0.0-0.7) 0.2 x10^3/uL (0.0-0.7) Basophils # (Auto) 0.0 x10^3/uL (0.0-0.2) 0.0 x10^3/uL (0.0-0.2) Prothrombin Time 13.7 SEC (11.7-14.0) Prothromb Time International Ratio 1.1 (0.8-1.1) Sodium Level 142 mmol/L (136-145) 143 mmol/L (136-145) Potassium Level 3.7 mmol/L (3.5-5.1) 4.0 mmol/L (3.5-5.1) Chloride Level 107 mmol/L (98-107) 107 mmol/L (98-107) Carbon Dioxide Level 27 mmol/L (21-32) 30 mmol/L (21-32) Anion Gap 8 (6-14) 6 (6-14) Blood Urea Nitrogen 16 mg/dL (8-26) 17 mg/dL (8-26) Creatinine 1.6 mg/dL (0.7-1.3) 1.6 mg/dL (0.7-1.3) Estimated GFR (Cockcroft-Gault) 43.3 43.3 BUN/Creatinine Ratio 10 (6-20) Glucose Level 202 mg/dL (70-99) 103 mg/dL (70-99) Hemoglobin A1c 7.1 % (4.8-5.6) Calcium Level 8.5 mg/dL (8.5-10.1) 8.4 mg/dL (8.5-10.1) Magnesium Level 2.0 mg/dL (1.8-2.4) Total Bilirubin 0.7 mg/dL (0.2-1.0) Aspartate Amino Transf (AST/SGOT) 39 U/L (15-37) Alanine Aminotransferase (ALT/SGPT) 37 U/L (16-63) Alkaline Phosphatase 69 U/L (46-116) Troponin I Quantitative 0.062 ng/mL (0.000-0.055) 0.060 ng/mL (0.000-0.055) 0.051 ng/mL (0.000-0.055) Total Protein 6.8 g/dL (6.4-8.2) Albumin 2.8 g/dL (3.4-5.0) Albumin/Globulin Ratio 0.7 (1.0-1.7) Glucose (Fingerstick) 124 mg/dL (70-99) Heparin Anti-Xa Act, Unfractionated 0.80 IU/mL (0.30-0.70) 0.47 IU/mL (0.30-0.70) Triglycerides Level 19 mg/dL (0-150) Cholesterol Level 73 mg/dL (0-200) LDL Cholesterol, Calculated 36 mg/dL (0-100) VLDL Cholesterol, Calculated 4 mg/dL (0-40) Non-HDL Cholesterol Calculated 40 mg/dL (0-129) HDL Cholesterol 33 mg/dL (40-60) Cholesterol/HDL Ratio 2.2 Test 09/27/17 07:11 09/27/17 08:49 09/27/17 10:50 09/27/17 11:11 Glucose (Fingerstick) 107 mg/dL (70-99) 177 mg/dL (70-99) Activated Clotting Time 156 sec (92-181) Heparin Anti-Xa Act, Unfractionated < 0.10 IU/mL (0.30-0.70) Laboratory Tests Test 09/26/17 14:40 09/26/17 21:42 09/26/17 21:50 09/27/17 04:00 White Blood Count 5.6 x10^3/uL (4.0-11.0) 8.9 x10^3/uL (4.0-11.0) Red Blood Count 4.29 x10^6/uL (4.30-5.70) 3.93 x10^6/uL (4.30-5.70) Hemoglobin 12.8 g/dL (13.0-17.5) 11.8 g/dL (13.0-17.5) Hematocrit 38.1 % (39.0-53.0) 35.2 % (39.0-53.0) Mean Corpuscular Volume 89 fL (79-100) 90 fL (79-100) Mean Corpuscular Hemoglobin 30 pg (25-35) 30 pg (25-35) Mean Corpuscular Hemoglobin Concent 34 g/dL (31-37) 33 g/dL (31-37) Red Cell Distribution Width 13.4 % (11.5-14.5) 13.4 % (11.5-14.5) Platelet Count 157 x10^3/uL (140-400) 137 x10^3/uL (140-400) Neutrophils (%) (Auto) 69 % (31-73) 70 % (31-73) Lymphocytes (%) (Auto) 18 % (24-48) 20 % (24-48) Monocytes (%) (Auto) 6 % (0-9) 8 % (0-9) Eosinophils (%) (Auto) 6 % (0-3) 3 % (0-3) Basophils (%) (Auto) 1 % (0-3) 0 % (0-3) Neutrophils # (Auto) 3.8 x10^3uL (1.8-7.7) 6.2 x10^3uL (1.8-7.7) Lymphocytes # (Auto) 1.0 x10^3/uL (1.0-4.8) 1.8 x10^3/uL (1.0-4.8) Monocytes # (Auto) 0.3 x10^3/uL (0.0-1.1) 0.7 x10^3/uL (0.0-1.1) Eosinophils # (Auto) 0.3 x10^3/uL (0.0-0.7) 0.2 x10^3/uL (0.0-0.7) Basophils # (Auto) 0.0 x10^3/uL (0.0-0.2) 0.0 x10^3/uL (0.0-0.2) Prothrombin Time 13.7 SEC (11.7-14.0) Prothromb Time International Ratio 1.1 (0.8-1.1) Sodium Level 142 mmol/L (136-145) 143 mmol/L (136-145) Potassium Level 3.7 mmol/L (3.5-5.1) 4.0 mmol/L (3.5-5.1) Chloride Level 107 mmol/L (98-107) 107 mmol/L (98-107) Carbon Dioxide Level 27 mmol/L (21-32) 30 mmol/L (21-32) Anion Gap 8 (6-14) 6 (6-14) Blood Urea Nitrogen 16 mg/dL (8-26) 17 mg/dL (8-26) Creatinine 1.6 mg/dL (0.7-1.3) 1.6 mg/dL (0.7-1.3) Estimated GFR (Cockcroft-Gault) 43.3 43.3 BUN/Creatinine Ratio 10 (6-20) Glucose Level 202 mg/dL (70-99) 103 mg/dL (70-99) Hemoglobin A1c 7.1 % (4.8-5.6) Calcium Level 8.5 mg/dL (8.5-10.1) 8.4 mg/dL (8.5-10.1) Magnesium Level 2.0 mg/dL (1.8-2.4) Total Bilirubin 0.7 mg/dL (0.2-1.0) Aspartate Amino Transf (AST/SGOT) 39 U/L (15-37) Alanine Aminotransferase (ALT/SGPT) 37 U/L (16-63) Alkaline Phosphatase 69 U/L (46-116) Troponin I Quantitative 0.062 ng/mL (0.000-0.055) 0.060 ng/mL (0.000-0.055) 0.051 ng/mL (0.000-0.055) Total Protein 6.8 g/dL (6.4-8.2) Albumin 2.8 g/dL (3.4-5.0) Albumin/Globulin Ratio 0.7 (1.0-1.7) Glucose (Fingerstick) 124 mg/dL (70-99) Heparin Anti-Xa Act, Unfractionated 0.80 IU/mL (0.30-0.70) 0.47 IU/mL (0.30-0.70) Triglycerides Level 19 mg/dL (0-150) Cholesterol Level 73 mg/dL (0-200) LDL Cholesterol, Calculated 36 mg/dL (0-100) VLDL Cholesterol, Calculated 4 mg/dL (0-40) Non-HDL Cholesterol Calculated 40 mg/dL (0-129) HDL Cholesterol 33 mg/dL (40-60) Cholesterol/HDL Ratio 2.2 Test 09/27/17 07:11 09/27/17 08:49 09/27/17 10:50 09/27/17 11:11 Glucose (Fingerstick) 107 mg/dL (70-99) 177 mg/dL (70-99) Activated Clotting Time 156 sec (92-181) Heparin Anti-Xa Act, Unfractionated < 0.10 IU/mL (0.30-0.70) Medications Current Medications Heparin Sodium/ Dextrose 500 ml @ 0 mls/hr CONT PRN IV SEE I/O RECORD Last administered on 09/26/17 15:52; Start 09/26/17 at 15:30 Heparin Sodium (Porcine) (Heparin Sodium) 2,300 unit PRN Q6HRS PRN IV FOR UFH LEVEL LESS THAN 0.2; Start 09/26/17 at 15:30 Heparin Sodium (Porcine) (Heparin Sodium) 4,000 unit 1X ONCE IV Last administered on 09/26/17 15:50; Start 09/26/17 at 15:30; Stop 09/26/17 at 15 :31; Status DC Ondansetron HCl (Zofran) 4 mg PRN Q8HRS PRN IV NAUSEA/VOMITING; Start at 15:30; Stop 09/26/17 at 16:12; Status DC Morphine Sulfate 2 mg PRN Q2HR PRN IV PAIN Last administered on 09/26/17 16: 36; Start 09/26/17 at 15:30; Stop 09/27/17 at 15:29 Sodium Chloride 1,000 ml @ 100 mls/hr Q10H IV ; Start 09/26/17 at 15:18; Stop 09/27/17 at 03:17; Status DC Nitroglycerin (Nitrostat) 0.4 mg PRN Q5MIN PRN SL CHEST PAIN; Start 09/26/17 at 15:30; Stop 09/27/17 at 15:29 Ondansetron HCl (Zofran) 4 mg PRN Q6HRS PRN IV NAUSEA/VOMITING; Start at 16:15; Stop 09/27/17 at 16:14 Acetaminophen (Tylenol) 500 mg PRN Q6HRS PRN PO MILD PAIN / TEMP; Start at 16:15 Acetylcysteine (Mucomyst 20% Oral Solution) 600 mg BID PO ; Start 09/26/17 at 21:00; Stop 09/26/17 at 21:00; Status DC Aspirin (Children'S Aspirin) 81 mg DAILY PO Last administered on 09/27/17 07: 43; Start 09/27/17 at 09:00 Carvedilol (Coreg) 12.5 mg BIDWMEALS PO Last administered on 09/27/17 07:44; Start 09/26/17 at 17:00 Insulin Aspart (NovoLOG) 10 units TIDAC SQ Last administered on 09/27/17 12: 18; Start 09/26/17 at 16:30 Isosorbide Mononitrate (Imdur) 30 mg DAILY PO Last administered on 09/27/17 07:43; Start 09/27/17 at 09:00 Atorvastatin Calcium (Lipitor) 80 mg QHS PO Last administered on 09/26/17 21: 43; Start 09/26/17 at 21:00 Insulin Detemir (Levemir) 45 units QHS SQ Last administered on 09/26/17 21:49 ; Start 09/26/17 at 21:00 Non-Formulary Medication 1.8 mg DAILY SQ ; Start 09/27/17 at 09:00; Stop 09/27 at 14:16; Status DC Losartan Potassium (Cozaar) 100 mg DAILY PO Last administered on 09/27/17 12: 13; Start 09/27/17 at 09:00 Acetylcysteine (Mucomyst 20% Oral Solution) 600 mg Q8H PO Last administered on 09/27/17 05:56; Start 09/26/17 at 22:00; Stop 09/27/17 at 06:01; Status DC Sodium Chloride 1,000 ml @ 60 mls/hr 1X ONCE IV Last administered on 20:20; Start 09/26/17 at 20:00; Stop 09/27/17 at 12:39; Status DC Dextrose (Dextrose 50%-Water Syringe) 12.5 gm PRN Q15MIN PRN IV SEE COMMENTS; Start 09/26/17 at 19:30 Heparin Sodium/ Sodium Chloride 1,000 unit 1X ONCE IART Last administered on 09/27/17 09:12; Start 09/27/17 at 09:00; Stop 09/27/17 at 09:05; Status DC Midazolam HCl (Versed) 2 mg 1X ONCE IV Last administered on 09/27/17 09:14; Start 09/27/17 at 09:00; Stop 09/27/17 at 09:05; Status DC Fentanyl Citrate (Fentanyl 2ml Vial) 100 mcg 1X ONCE IV Last administered on 09/27/17 09:13; Start 09/27/17 at 09:00; Stop 09/27/17 at 09:05; Status DC Iodixanol (Visipaque 320) 100 ml 1X ONCE IART Last administered on 09/27/17 09:13; Start 09/27/17 at 09:00; Stop 09/27/17 at 09:05; Status DC Lidocaine HCl 18 ml 1X ONCE IJ Last administered on 09/27/17 09:13; Start 09/27/17 at 09:00; Stop 09/27/17 at 09:05; Status DC Sodium Chloride (Normal Saline Flush) 3 ml QSHIFT PRN IV AFTER MEDS AND BLOOD DRAWS; Start 09/27/17 at 09:30 Sodium Chloride 1,000 ml @ 100 mls/hr Q10H IV ; Start 09/27/17 at 09:30; Stop 09/27/17 at 15:29 Nitroglycerin (Nitrostat) 0.4 mg PRN Q5MIN PRN SL CHEST PAIN; Start 09/27/17 at 09:30 Active Scripts Active Reported Victoza 3-Paulino (Liraglutide) 0.6 Mg/0.1 Ml Pen.injctr 1.8 Mg SQ DAILY Lantus Solostar (Insulin Glargine,Hum.rec.anlog) 100 Unit/1 Ml Insuln.pen 45 Unit SQ QHS Novolog (Insulin Aspart) 100 Unit/1 Ml Vial 10 Unit SQ TIDAC Aspirin 81 Mg Tab.chew 1 Tab PO DAILY Carvedilol 12.5 Mg Tablet 1 Tab PO BID Diovan (Valsartan) 320 Mg Tablet 320 Mg PO DAILY Isosorbide Mononitrate Er (Isosorbide Mononitrate) 30 Mg Tab.er.24h 1 Tab PO DAILY Lipitor (Atorvastatin Calcium) 80 Mg Tablet 1 Tab PO DAILY Vitals/I & O Vital Sign - Last 24 Hours 09/26/17 09/26/17 09/26/17 09/26/17 15:56 16:36 18:17 19:21 Temp 97.9 97.9 Pulse 85 93 Resp 18 18 20 B/P (MAP) 141/86 (104) 163/84 (110) Pulse Ox 94 99 98 98 O2 Delivery Room Air Room Air Room Air 09/26/17 09/26/17 09/26/17 09/26/17 19:55 20:15 20:20 23:12 Temp 98.6 99.5 98.6 99.5 Pulse 93 93 99 Resp 16 16 B/P (MAP) 154/79 (104) 154/79 109/55 (73) Pulse Ox 96 96 O2 Delivery Room Air Room Air Room Air 09/27/17 09/27/17 09/27/17 09/27/17 03:00 07:00 07:43 07:44 Temp 99.3 98.3 99.3 98.3 Pulse 85 95 Resp 16 19 B/P (MAP) 98/59 (72) 126/66 (86) 126/66 126/66 Pulse Ox 94 97 O2 Delivery Room Air Room Air 09/27/17 09/27/17 09/27/17 09/27/17 07:55 09:13 09:16 09:30 Pulse 73 84 Resp 16 16 B/P (MAP) 128/59 (82) Pulse Ox 97 97 O2 Delivery Room Air Nasal Cannula Room Air O2 Flow Rate 2.0 09/27/17 09/27/17 09/27/17 09/27/17 09:45 10:00 10:15 10:30 Pulse 83 87 69 68 B/P (MAP) 121/66 (84) 123/68 (86) 108/63 (78) 104/56 (72) 09/27/17 09/27/17 09/27/17 09/27/17 10:45 11:25 11:55 12:13 Pulse 70 72 71 80 B/P (MAP) 97/53 (68) 107/56 (73) 106/57 (73) 09/27/17 12:45 Temp 97.7 97.7 Pulse 67 Resp 20 B/P (MAP) 97/52 (67) Pulse Ox 93 O2 Delivery Room Air Intake and Output 09/26/17 09/26/17 09/27/17 15:00 23:00 07:00 Intake Total 500 ml Output Total 200 ml 100 ml Balance -200 ml 400 ml ESTELA ALCOCER III DO Sep 27, 2017 14:40
--- NOTE | 2017-09-27 15:23 | CARD ---
APPROVED REPORT EXAM: Two-dimensional and M-mode echocardiogram with Doppler and color Doppler. Other Information Quality : Average Rhythm : NSR INDICATION Chest Pain 2D DIMENSIONS Left Atrium(2D)2.8 (1.6-4.0cm)IVSd0.8 (0.7-1.1cm) Aortic Root(2D)2.8 (2.0-3.7cm)LVDd3.8 (3.9-5.9cm) LVOT Diameter2.0 (1.8-2.4cm)PWd0.8 (0.7-1.1cm) LVDs2.2 (2.5-4.0cm)FS (%) 20.5 % SV43.7 mlLVEF(%)52.0 (>50%) Aortic Valve AoV Peak Chi.121.0cm/sAoV VTI28.6cm AO Peak GR.5.9mmHgLVOT VTI 15.77cm AO Mean GR.3mmHg Mitral Valve MV E Hodcsnxv54.4cm/sMV E Peak Gr.4mmHg MV DECEL [id number] A Wvetohns25.6cm/s MV ADM87gyC/A Ratio1.1 MV A [id number] (PHT)6.47cm2 TDI Lateral E' P. V10.16cm/sMedial E' P. V6.91cm/s E/Lateral E'8.5E/Medial E'12.5 Tricuspid Valve TR P. Dldjeibl335jn/sRAP [id number] TR Peak Gr.[id number] LEFT VENTRICLE The left ventricle is normal size. There is normal left ventricular wall thickness. Left ventricle sy stolic function is normal. The Ejection Fraction is 50-55%. There is normal LV segmental wall motion. The left ventricular diastolic function and filling is normal for age. There is no ventricular septa l defect visualized. RIGHT VENTRICLE The right ventricle is normal size. The right ventricular systolic function is normal. ATRIA The left atrium size is normal. The right atrium size is normal. The interatrial septum is intact wit h no evidence for an atrial septal defect or patent foramen ovale as noted on 2-D or Doppler imaging. AORTIC VALVE The aortic valve is mildly calcified. The aortic valve is trileaflet. Doppler and Color Flow revealed no significant aortic regurgitation. There is no significant aortic valvular stenosis. MITRAL VALVE The mitral valve is normal in structure. There is no mitral valve stenosis. Doppler and Color Flow re vealed trace to mild mitral regurgitation. TRICUSPID VALVE The tricuspid valve is not well visualized. Doppler and Color Flow revealed trace tricuspid regurgita tion. The PA pressure was estimated at 19 mmHg. There is no tricuspid valve stenosis. PULMONIC VALVE The pulmonic valve is not well visualized. Doppler and Color Flow revealed no pulmonic valvular regur gitation. There is no pulmonic valvular stenosis. GREAT VESSELS The aortic root is normal in size. Pulmonary veins not recorded. The IVC is normal in size and collap ses >50% with inspiration. PERICARDIAL EFFUSION There is no evidence of significant pericardial effusion. Critical Notification Critical Value: No <Conclusion> Left ventricle systolic function is normal. The Ejection Fraction is 50-55%. There is normal LV segmental wall motion. Trace to mild mitral regurgitation. Trace tricuspid regurgitation. The PA pressure was estimated at 19 mmHg. There is no evidence of significant pericardial effusion.
== END 2017-09-27 16:00 | disposition home or self-care (01) | DRG 280 ==
LOC: ER 14:02 → 2 SOUTH 16:26
PROVIDERS: ADMIT Internal Medicine; ATTEND Internal Medicine
PROC: 4A023N7 Measurement of Cardiac Sampling and Pressure, Left Heart, Percutaneous Approach (ICD-10-PCS; principal; 2017-09-27)
PROC: B2111ZZ Fluoroscopy of Multiple Coronary Arteries using Low Osmolar Contrast (ICD-10-PCS; 2017-09-27)
DX: T82.855A Stenosis of coronary artery stent, initial encounter (principal); I21.4 Non-ST elevation (NSTEMI) myocardial infarction; E43 Unspecified severe protein-calorie malnutrition; N17.9 Acute kidney failure, unspecified; I25.110 Atherosclerotic heart disease of native coronary artery with unstable angina pectoris; I50.42 Chronic combined systolic (congestive) and diastolic (congestive) heart failure; I13.0 Hypertensive heart and chronic kidney disease with heart failure and stage 1 through stage 4 chronic kidney disease, or unspecified chronic kidney disease; E11.22 Type 2 diabetes mellitus with diabetic chronic kidney disease; E11.65 Type 2 diabetes mellitus with hyperglycemia; M19.90 Unspecified osteoarthritis, unspecified site; K21.9 Gastro-esophageal reflux disease without esophagitis; N18.3 Chronic kidney disease, stage 3 (moderate); G47.33 Obstructive sleep apnea (adult) (pediatric); E78.00 Pure hypercholesterolemia, unspecified; E66.9 Obesity, unspecified; E78.5 Hyperlipidemia, unspecified; Y83.1 Surgical operation with implant of artificial internal device as the cause of abnormal reaction of the patient, or of later complication, without mention of misadventure at the time of the procedure; Z82.49 Family history of ischemic heart disease and other diseases of the circulatory system; Z79.4 Long term (current) use of insulin; Z68.30 Body mass index [BMI] 30.0-30.9, adult; I25.2 Old myocardial infarction; Z95.0 Presence of cardiac pacemaker; Z91.19 Patient's noncompliance with other medical treatment and regimen; Z82.3 Family history of stroke; Z82.0 Family history of epilepsy and other diseases of the nervous system
CPT/HCPCS: 36415; 71010; 80048; 80053; 80061; 82962; 83036; 83735; 84484; 85025; 85347; 85520; 85610; 93005; 93306; 93458; 93571; 96374; 96375; 99152; 99153; C1769; C1771; C1892; G0269; J1644; J1815; J2250; J2270; J3010; J7030; 99285-25; J2001